=== PATIENT | female | born 1990 | race Two or more races ===

== ENCOUNTER → 2016-11-20 | Outpatient (CLI) | payer BC ==
--- NOTE | 2016-11-20 16:51 | KCIC ---
PROCEDURE MRI study of the left wrist without contrast HISTORY Ganglion cyst. It developed in recent months. TECHNIQUE Noncontrast MRI sequences of the left wrist were performed in all 3 planes. COMPARISON None available. FINDINGS There a few small degenerative cysts of the carpal bones. Otherwise no abnormal marrow infiltrative process or fracture or contusion or avascular necrosis is seen. There is mild degenerative bone marrow edema of the lateral aspect of the radius including the styloid process. 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 Minimal joint effusion is seen here. There is thinning of the articular cartilage of the 1st carpal metacarpal joint. There is mild degenerative bone marrow edema of the lateral aspect of the proximal 1st metacarpal epiphysis. No significant degenerative spurring is seen here. The triangular fibrocartilage complex is intact. No tendon tear or tenosynovitis is seen. There is a dorsal periarticular ganglion measuring 19 millimeters in size located between the extensor carpi radialis brevis tendon and the extensor digitorum tendon. It is located just dorsal to the capitate bone and lunate bone. The capitate -lunate -radius axis is normal. No abnormal widening of the scaphoid lunate joint space or the lunate triquetrum joint space is seen. These 2 ligaments are intact. IMPRESSION 19 millimeter dorsal periarticular ganglion cyst. Mild primary degenerative osteoarthritis. Electronically signed by: Simon Bains MD (Nov 20, 2016 16:49:51)
== END | disposition home or self-care (01) ==
LOC: KCIC MRI 15:11
PROVIDERS: ATTEND Orthopaedic Surgery Sports Medicine
DX: M67.432 Ganglion, left wrist (principal); M19.032 Primary osteoarthritis, left wrist
CPT/HCPCS: 73221